=== PATIENT | male | born 1970 | race Caucasian/White ===

== ENCOUNTER → 2018-07-01 14:57 | Outpatient (CLI) | payer BC, SELFPAY ==
--- NOTE | 2018-07-01 15:00 | MR_ITS ---
MR knee RT wo con HISTORY: Medial sided knee pain knee instability and swelling ITS.REASON: RIGHT KNEE PAIN ORDERING PHYSICIAN: Santi Pedraza PATIENT AGE: 47 years Comparison: 06/20/2018 TECHNIQUE: Standard multiplanar multiecho sequences are performed without contrast. FINDINGS: THE REPORT IS DELAYED WAITING ON OUTSIDE FILMS FOR COMPARISON WHICH ARE MADE AVAILABLE TO ME FOR REVIEW ON 07-12-18 The anterior cruciate ligament has an unremarkable appearance. The posterior cruciate ligament appears torn with discontinuity of the ligament fibers. Heterogeneous increased T2 signal is present in this area within the popliteal fossa consistent with underlying edema and/or blood. The collateral ligaments appear intact. Patellar tendon and quadriceps tendon have an unremarkable appearance. There is a moderate sized suprapatellar effusion. No obvious meniscal tear. There is grade 2 signal intensity in the posterior horn of the medial meniscus. This however does not extend to the articular surface or free edge on more than one image and does not meet the strict MRI criteria for meniscal tear.. There are 3 oval areas of decreased T1 and T2 signal within the posterior aspect of the knee joint the largest measuring 12 x 7 mm consistent with loose bodies. There are mild osteoarthritic changes of the knee involving the medial compartment and patellofemoral joint. There is mild amount of bone marrow edema involving the subarticular region of the medial femoral condyle and the medial tibial plateau. There is heterogeneous increased T2 signal within the popliteal fossa. The patellar cartilage is well preserved. Small areas of increased T2 signal are present in the intercondylar notch on the medial side and in the posterior aspect of the medial femoral condyle. IMPRESSION: 1. Tear of the posterior cruciate ligament with heterogeneous signal intensity within the popliteal fossa consistent with underlying edema and/or blood. 2. Mild osteoarthritic changes of the medial compartment and patellofemoral joint with moderate-sized suprapatellar effusion.. There is mild amount of edema involving the medial femoral condyle and medial tibial plateau. No definite meniscal tear 3. Loose bodies in the popliteal fossa.
== END ==
PROVIDERS: Family Provider Family Medicine; PCP Family Medicine; Visit Provider Family Medicine
DX: M25.561 Pain in right knee (principal)
CPT/HCPCS: 73721

== ENCOUNTER 2019-07-17 14:01 | Outpatient (RCR) | payer BC, SELFPAY | END 2019-07-17 14:05 | disposition home or self-care (01) | LOC: PT 14:01 | PROVIDERS: Visit Provider Internal Medicine Interventional Cardiology | DX: I25.810 Atherosclerosis of coronary artery bypass graft(s) without angina pectoris (principal) ==

== ENCOUNTER 2020-02-07 14:09 | Emergency (ER) | payer BC, SELFPAY ==
[2020-02-07 14:10] VITALS: BP 140/80; PULSE 73; RESP 18; TEMP 36.6; O2SAT 99; BMI 35.3
--- NOTE | 2020-02-07 14:34 | XR_ITS ---
PROCEDURE: XR HAND RT MIN 3V CLINICAL INDICATION: INJURED RT INDEX FINGER Pain following injury COMPARISON: No exams were available for comparison FINDINGS: No fracture or dislocation. Laceration is noted at the distal aspect of the index finger dorsally and medially. No radiopaque foreign body The joint spaces are well-preserved. No significant degenerative/arthritic changes. No erosive changes evident. Other findings:None. IMPRESSION: No obvious fracture, soft tissue laceration Dictated by: Bryan Keating MD 02/07/2020 16:12 Electronically signed by Bryan Keating MD in [place] 02/07/2020 16:12
--- NOTE | 2020-02-07 16:34 | HMH.EDUTC ---
[facility] Disposition Clinical Impression: Finger laceration Qualifiers: Encounter type: initial encounter Finger: index finger Damage to nail status: without damage Foreign body presence: unspecified Laterality: right Qualified Code(s): S61.210A - Laceration without foreign body of right index finger without damage to nail, initial encounter Disposition: Home, Self-Care Condition on Discharge: Good Instructions: How to Care for a Laceration After Repair, DI for Laceration Repair, DI for Laceration Repair -- Simple, DI for Laceration Repair -- Finger, Amoxicillin and Clavulanic Acid Additional Instructions: Suture instructions: You have required stitches today. Please read the following instructions so you know how to care for them: 1. Keep wound area dry for the first 24 hours. 2 May clean gently with mild soap and water, after 48 hours to prevent crusting over suture knots. 3. You may shower if your provider gives permission but do not take a bath until the skin is healed.. 4. Never leave a wet dressing or Band-Aid on your stitches as this allows bacteria to reach the area and may cause infection. Band-aids can cause the wound to sweat and not recommended to wear for long periods of time Watch for signs of infection: Increasing redness, tenderness or warmth around the suture site Unusual swelling around the site Appearance of pus around each suture or any red streaks Fever If you develop any of the above signs or symptoms of infection, Follow up with Family Physician immediately 5. Suture removal in __10-12__days 6. Return to [facility] or follow up with family doctor for removal. This can be done by any medical provider during regular hours on Sunday through Sunday, by appointment. Prescriptions: Amoxicillin/Potassium Clav [Augmentin 500mg tab] 1 tab PO BID 7 Days #14 tab Transmission Status: Pending to [email or web address] #[id number] Referrals: Santi Pedraza [Primary Care Provider] - As needed Time of Disposition: 16:36 Medical Decision Making - Manny Inquiry Pt receiving controlled substance: No Manny was queried for this patient: No Vital Signs: 02/07/20 14:10 Temperature 98 F Temperature Source Oral Pulse Rate [Radial] 73 Respiratory Rate 18 Blood Pressure [Right Arm] 140/80 Blood Pressure Mean [Right Arm] 100 Blood Pressure Source [Right Arm] Automatic Cuff Blood Pressure Position [Right Arm] Sitting 02 Sat by Pulse Oximetry 99 Oxygen Delivery Method Room Air Orders (Tests/Meds): ED MEDICATIONS Discontinued Medications Generic Name Dose Route Start Last Admin Trade Name Keeley PRN Reason Stop Dose Admin Tetanus/Reduced Diphtheria/Acell Pertussis 0.5 ml 02/07/20 15:02 02/07/20 15:07 Adacel Tdap 0.5ml Syringe IM 02/07/20 15:03 0.5 ml .ONCE ONE Administration - Radiology Data #1 Image(s): Finger(s)/Thumb Image Reviewed: Yes I reviewed the patient's radiology image Preliminary Findings: No Fracture Seen Medical Decision Narrative: Tetatnus shot given in [facility] and patient prescribed Augmentin 500mg bid x 7 days due to laceration caused by dirty dozer tract [facility] HPI - General Stated complaint: AO laceration to R index finger Time Seen by Provider: 02/07/20 15:30 Mode of Arrival: Ambulatory Source of Information: Patient Limitations: No Limitations Description of Symptoms (Recalled from Triage Doc. by RN): Smashed index finger on right hand HEENT Symptoms (Recalled from RN notes): No Resp Symptoms (Recalled from RN notes): No Skin Symptoms (Recalled from RN notes): Yes MS Symptoms (Recalled from RN notes): No Functional Status (Recalled from RN notes): wnl - History of Present Illness Provider Complaint: Patient states that he was working on a dozer tract when it slipped and pinched his right index finger State that he noticed he had cut the tip of his right index finger just above the finger nail State that he immediately applied pressure and cleaned the wound well with soap
[2020-02-07 16:42] VITALS: BP 140/80; PULSE 73; RESP 18; TEMP 36.6; O2SAT 99
== END 2020-02-07 16:47 | disposition home or self-care (01) ==
PROVIDERS: Emergency Provider Nurse Practitioner; PCP Family Medicine
DX: S61.210A Laceration without foreign body of right index finger without damage to nail, initial encounter (principal); W26.8XXA Contact with other sharp object(s), not elsewhere classified, initial encounter; Y92.018 Other place in single-family (private) house as the place of occurrence of the external cause; Z23 Encounter for immunization; E11.9 Type 2 diabetes mellitus without complications; Z79.84 Long term (current) use of oral hypoglycemic drugs; Z79.899 Other long term (current) drug therapy
CPT/HCPCS: 12001; 73130; 90471; 90715; 99202

== ENCOUNTER → 2022-02-14 16:59 | Outpatient (CLI) | payer BC, SELFPAY ==
--- NOTE | 2022-02-14 | XR_ITS ---
PROCEDURE INFORMATION: Exam: XR Cervical Spine Exam date and time: 02/14/2022 5:09 PM Age: 51 years old Clinical indication: Neck pain; Prior surgery; Surgery date: 6+ months TECHNIQUE: Imaging protocol: XR of the cervical spine. Views: 4 or 5 views. COMPARISON: [facility] MRI-C-SPINE W/WO 01/30/2017 9:26 AM FINDINGS: Bones/joints: Anterior spinal fusion at C5-6. Findings demonstrated on the 2017 MRI cervical spine exam. Vertebral bodies are satisfactorily aligned. Mild-moderate bilateral neural foraminal stenosis. No evidence of acute osseous injury. Soft tissues: Unremarkable. IMPRESSION: 1. No evidence of acute osseous injury. 2. Anterior spinal fusion at C5-6. Mild-moderate bilateral neural foraminal stenosis.
== END ==
PROVIDERS: PCP Family Medicine; Visit Provider Family Medicine
DX: M54.2 Cervicalgia (principal)
CPT/HCPCS: 72050

== ENCOUNTER 2024-06-15 13:07 | Emergency (ER) | payer BC, SELFPAY ==
--- NOTE | 2024-06-15 13:00 | ECG_ITS ---
APPROVED REPORT Exam: Resting ECG HR:81 bpm ECG Measurements Heart Rate 81 AXES NM 185 P 54 QRSd 168 QRS 105 QT 437 T 65 QTc 474 Conclusion SINUS RHYTHM INDETERMINATE AXIS INTRAVENTRICULAR CONDUCTION DELAY [130+ ms QRS DURATION] ABNORMAL ECG Electronically signed by : ELANA IGNACIO, 06/15/2024 16:29:05
[2024-06-15 13:07] VITALS: BP 163/110; PULSE 68; RESP 18; TEMP 36.7; O2SAT 97; BMI 35.1
[2024-06-15 13:11] VITALS: BMI 35.1
--- NOTE | 2024-06-15 13:11 | XR_ITS ---
PROCEDURE INFORMATION: Exam: XR Chest Exam date and time: 06/15/2024 1:06 PM Age: 53 years old Clinical indication: Pain; Chest pressure; Additional info: Chest pain TECHNIQUE: Imaging protocol: Radiologic exam of the chest. Views: 2 views. COMPARISON: CR XR CERVICAL SPINE 5V 02/14/2022 5:09 PM FINDINGS: Lungs: Bibasilar atelectasis. No consolidation. Pleural spaces: Unremarkable. No pleural effusion. No pneumothorax. Heart/Mediastinum: Aortic atherosclerosis. No cardiomegaly. Post cardiac surgery changes. Post sternotomy changes. Bones/joints: No acute fracture. IMPRESSION: No acute findings.
[2024-06-15 13:23] LABS: Basophils # 0.1 K/mm3 (0-0.2); Basophils % 0.7 % (0.1-2.0); Eosinophils # 0.1 K/mm3 (0.0-0.4); Eosinophils % 1.6 % (0.1-12.0); Hematocrit 38.9 % (42.0-52.0); Hemoglobin 12.5 g/dL (14.1-18.0); Lymphocytes # 2.7 K/mm3 (0.7-4.5); Lymphocytes % 35.6 % (10-50); Mean Corpuscular HGB Conc 32.3 g/dL (31.8-35.4); Mean Corpuscular Hemoglobin 22.7 pg (27.0-31.2); Mean Corpuscular Volume 70.3 fl (80-94); Mean Platelet Volume 8.6 fl (7.4-10.4); Monocytes # 0.5 K/mm3 (0.1-1.0); Monocytes % 6.5 % (1.7-9.3); Neutrophils # 4.3 K/mm3 (1.8-7.8); Neutrophils % 55.7 % (37.0-80.0); Platelet Count 154 K/mm3 (142-424); Red Blood Count 5.53 M/mm3 (4.60-6.20); Red Cell Distribution Width 16.7 % (11.5-17.5); White Blood Count 7.7 K/mm3 (4.8-10.8)
[2024-06-15 13:25] LABS: Albumin Level 4.8 g/dl (3.5-5.0); Chloride 106 mmol/L (98-107); Potassium 3.4 mmoL/L (3.5-5.1); Sodium 141 mmol/L (136-145)
[2024-06-15 13:28] LABS: Alanine Aminotransferase 49 U/L (12-78); Albumin/Globulin Ratio 1.7 (1.1-1.8); Alkaline Phosphatase 31 U/L (38-126); Anion Gap 14.4 mEq/L (5-15); Aspartate Amino Transferase 37 U/L (17-59); Bilirubin,Total 0.7 mg/dl (0.2-1.3); Blood Urea Nitrogen 15 mg/dl (9-20); Calcium 9.6 mg/dl (8.4-10.2); Carbon Dioxide 24 mmol/L (22.0-30.0); Creatinine Clearance Estimated 208 mL/min (50-200); Estimated Glomerular Filt Rate 118 ml/min (>60); GFR (African American) 143 ML/MIN (>60); Globulin 2.9 g/dL (1.3-3.2); Glucose 136 mg/dl (74-100); Total Protein,Serum 7.7 g/dl (6.3-8.2)
[2024-06-15 13:30] VITALS: BP 154/94; PULSE 76; RESP 15; O2SAT 94
[2024-06-15 13:42] LABS: Troponin I < 0.01 ng/ml (0.00-0.034)
--- NOTE | 2024-06-15 13:42 | CT_ITS ---
PROCEDURE INFORMATION: Exam: CTA Chest With Contrast Exam date and time: 06/15/2024 2:29 PM Age: 53 years old Clinical indication: Shortness of breath and other: Cp; Additional info: Chest pain, SOA TECHNIQUE: Imaging protocol: Computed tomographic angiography of the chest with contrast. Exam focused on the arteries. 3D rendering (Not supervised by radiologist): MIP and/or 3D reconstructed images were created by the technologist. Radiation optimization: All CT scans at this facility use at least one of these dose optimization techniques: automated exposure control; mA and/or kV adjustment per patient size (includes targeted exams where dose is matched to clinical indication); or iterative reconstruction. Contrast material: ISOVUE 370; Contrast volume: 70 ml; Contrast route: INTRAVENOUS (IV); COMPARISON: CR XR CHEST 2V 06/15/2024 1:06 PM FINDINGS: Pulmonary arteries: Normal. No pulmonary emboli. Aorta: Unremarkable. No aortic aneurysm. No aortic dissection. Lungs: Tree-in-bud nodularity in right middle lobe, concerning for pneumonia. Tiny punctate calcified granuloma in the left upper lobe. Pleural spaces: Unremarkable. No pneumothorax. No pleural effusion. Heart: Moderate cardiomegaly. Coronary artery atherosclerosis. Post cardiac surgery changes. Sternotomy wires appear intact. Lymph nodes: Unremarkable. No enlarged lymph nodes. Gallbladder and biliary ducts: Post cholecystectomy. Bones/joints: No acute fracture. No suspicious lytic or blastic bony lesion. Soft tissues: Gynecomastia. New line micronodular appearance of the liver, concerning for cirrhosis. IMPRESSION: Tree-in-bud nodularity in right middle lobe, concerning for pneumonia.
--- NOTE | 2024-06-15 13:52 | PC.NURSE ---
DR IGNACIO AT BEDSIDE
[2024-06-15 14:00] VITALS: BP 168/98; PULSE 69; RESP 13; O2SAT 94
--- NOTE | 2024-06-15 14:02 | HMH.EDCP ---
Discharge Plan Disposition Patient Disposition: Home, Self-Care Condition: Good Prescriptions Prescriptions: New doxycycline hyclate 100 mg tablet 100 mg PO BID 10 Days Qty: 20 0RF prednisone 20 mg tablet 40 mg PO BID 5 Days Qty: 20 0RF No Action oseltamivir [Tamiflu] 75 mg capsule 75 mg PO BID 5 Days Qty: 10 0RF promethazine 12.5 mg tablet 12.5 mg PO TID Qty: 20 0RF dextromethorphan-guaifenesin [Mucinex DM] 60-1,200 mg tablet extended release 12 hr 1 tab PO Q12H Qty: 20 0RF albuterol sulfate 90 mcg/actuation HFA aerosol inhaler 2 inh INHALATION Q6HP PRN (Reason: Shortness Of Breath Or Wheezing) Qty: 1 0RF hydrocodone-acetaminophen 1 EACH tablet 1 tab PO QID PRN (Reason: PAIN) aspirin 81 MG tablet,delayed release (DR/EC) 81 mg PO DAILY meloxicam 7.5 MG tablet 7.5 mg PO DAILY amlodipine 10 MG tablet 10 mg PO DAILY esomeprazole magnesium 40 MG capsule,delayed release(DR/EC) 40 mg PO DAILY metoprolol succinate 25 MG tablet extended release 24 hr 25 mg PO DAILY ezetimibe 10 MG tablet 10 mg PO DAILY rosuvastatin 10 MG tablet 10 mg PO DAILY bupropion HBr 174 MG tablet extended release 24 hr 174 mg PO DAILY empagliflozin 10 MG tablet 10 mg PO DAILY rivaroxaban 2.5 MG tablet 2.5 mg PO DAILY promethazine-DM 473 ML syrup 5 ml PO Q4HP PRN (Reason: Cough) Qty: 180 0RF baloxavir marboxil 40 MG tablet 80 mg PO ONCE Qty: 2 0RF amoxicillin-pot clavulanate 1 EACH tablet 1 tab PO BID 7 Days Qty: 14 0RF Referrals Follow up/Referrals: Santi Pedraza [Primary Care Provider] - See instructions Activity Restrictions/Add. Instructions Additional Instructions/Restrictions: You were evaluated in the emergency department today. 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 You were given your first dose of doxycycline today. Return to the emergency department right away for new or worsening symptoms peer Clinical Impressions Clinical Impression: Pneumonia, Chest pain Stand Alone Forms Stand Alone Forms: Work/School Release Instructions Patient Instructions: Pneumonia-Adult, DI for Atypical Chest Pain Print Language Print Language: Amharic Discharge ED Provider: Samantha Rajan HPI General Chief Complaint: Chest Pain Stated Complaint: CHEST PAIN Time Seen by Provider: 06/15/24 13:27 Mode of Arrival: Ambulatory Source of Information: Patient Limitations: No Limitations Description of Symptoms (Recalled from ER Triage Doc. by RN): PT REPORTS LEFT SIDED CHEST PAIN AND PAIN UNDER LEFT SHOULDER PAIN, ONGOING FOR ABOUT 2 WEEKS. REPORTS INCREASING SHORTNESS OF BREATH AND FATIGUE WITH EXERTION. REPORTS TIGHTENING IN NECK History of Present Illness HPI narrative: This patient is a 53-year-old male with a history of CAD status post CABG, chronic anticoagulation with Xarelto, hypertension, hyperlipidemia presenting to the emergency department for evaluation with concern for chest pains. Patient reports that he has had left-sided chest pain that goes up into his jaw and left upper extremity/left shoulder for about 2 weeks now but has been progressively worsening. He is also had progressively worsening dyspnea on exertion stating that he can only walk very short distances now without extreme shortness of breath. He notes this feels similar to the past times that he has had to have stents and CABG. He has been concerned at this time his left shoulder blade pain. Related Data Home Medications ?Medication ?Instructions ?Recorded ?Confirmed amlodipine 10 mg tablet 10 mg PO DAILY BP 11/17/19 11/17/19 aspirin 81 mg tablet,delayed 81 mg PO DAILY THINNER 11/17/19 11/17/19 release bupropion HBr 174 mg 174 mg PO DAILY MOOD 11/17/19 11/17/19 tablet,extended release 24 hr empagliflozin 10 mg tablet 10 mg PO DAILY Diabetes 11/17/19 11/17/19 esomeprazole magnesium 40 mg 40 mg PO DAILY GERD 11/17/19 11/17/19 capsule,delayed release ezetimibe 10 mg tablet 10 mg PO DAILY CHOELSEROL 11/17/19 11/17/19 hydrocodone 10 mg-acetaminophen 1 tab PO QID PRN PAIN 11/17/19 11/17/19 325 mg tablet meloxicam 7.5 mg tablet 7.5 mg PO DAILY Arthritis 11/17/19 11/17/19 metoprolol succinate 25 mg 25 mg PO DAILY BP 11/17/19 11/17/19 tablet,extended release 24 hr rivaroxaban 2.5 mg tablet 2.5 mg PO DAILY THINNER 11/17/19 11/17/19 rosuvastatin 10 mg tablet 10 mg PO DAILY Cholesterol 11/17/19 11/17/19 Previous Rx's ?Medication ?Instructions ?Recorded baloxavir marboxil 40 mg tablet 80 mg (2 x 40 mg) PO ONCE #2 tabs 11/17/19 dextromethorphan-guaifenesin ER 60 1 tab PO Q12H #20 tabs 11/17/19 mg-1,200 mg tab,extend release,12hr (Mucinex DM) oseltamivir 75 mg capsule (Tamiflu) 75 mg PO BID 5 days #10 caps 11/17/19 promethazine 12.5 mg tablet 12.5 mg PO TID #20 tabs 11/17/19 promethazine-DM 6.25 mg-15 mg/5 mL 5 ml PO Q4HP PRN Cough ##180 11/17/19 oral syrup albuterol sulfate 90 mcg/actuation 2 inh inhalation Q6HP PRN 12/05/19 aerosol inhaler Shortness Of Breath Or Wheezing #1 inh amoxicillin 500 mg-potassium 1 tab PO BID 7 days #14 tabs 02/07/20 clavulanate 125 mg tablet doxycycline hyclate 100 mg tablet 100 mg PO BID 10 days #20 tabs 06/15/24 prednisone 20 mg tablet 40 mg (2 x 20 mg) PO BID 5 days 06/15/24 #20 tabs Allergies Allergy/AdvReac Type Severity Reaction Status Date / Time No Known Allergies Allergy Verified 11/17/19 17:30 [facility] Disclaimer: The information contained in this section may have been updated after the patient was seen, as this information can be updated by other users. Social History Smoking Status: Current some day smoker alcohol intake: never current occupational status: other Travel in the last 8 weeks: None housing: house caffeine: Yes ROS Obtained: Yes All systems reviewed & no additional complaints except as documented Physical Exam General General appearance: alert, in no apparent distress and obese Head Head exam: atraumatic and normocephalic Eye Eye exam: Present normal appearance, PERRL and EOMI ENT ENT exam: Present normal exam, normal oropharynx, mucous membranes moist and normal external ear exam Neck Neck exam: Present normal inspection, full ROM and trachea midline; Absent tenderness Chest Chest inspection: Present normal inspection and symmetric chest wall rise; Absent tenderness Respiratory Respiratory exam: Present normal lung sounds bilaterally; Absent respiratory distress, wheezes, stridor or accessory muscle use Cardiovascular Cardiovascular exam: Present regular rate and normal rhythm Abdominal Exam Abdominal exam: Present soft; Absent distention, tenderness or guarding Extremities Exam Extremities exam: Present normal inspection, full ROM and normal capillary refill; Absent tenderness or edema Back Exam Back exam: Present normal inspection and full ROM; Absent tenderness Neurological Exam Neurological exam: Present alert, oriented X3, CN II-XII intact and normal gait; Absent motor sensory deficit Psychiatric Psychiatric exam: Present normal affect and normal mood Skin Skin exam: Present warm and dry HEART Score HEART Score HEART Score assessment performed?: Yes History (anamnesis): Slightly suspicious ECG: Normal Age: 45-65 years Risk factors: Atherosclerosis history Troponin: </= normal limit HEART Score: 3 Critical Care Critical Care Time Critical Care Time: No Medical Decision Making Medical Records Medical records reviewed: Yes I reviewed the patient's medical records. Manny Inquiry Pt receiving controlled substance: No Vital Signs Vital Signs: 06/15/24 13:07 06/15/24 13:30 06/15/24 14:00 Temperature 98.0 F Temperature Source Oral Pulse Rate 76 69 Pulse Rate [Apical] 68 Respiratory Rate 18 15 13 Blood Pressure 154/94 H 168/98 H Blood Pressure [Right Arm] 163/110 H Blood Pressure Mean 114 108 Blood Pressure Mean [Right Arm] 127 Blood Pressure Source Blood Pressure Source [Right Arm] Automatic Cuff Blood Pressure Position Blood Pressure Position [Right Arm] Sitting 02 Sat by Pulse Oximetry 97 94 L 94 L Oxygen Delivery Method Room Air Room Air Room Air 06/15/24 15:30 06/15/24 15:55 Temperature 98.0 F Temperature Source Oral Pulse Rate 68 68 Pulse Rate [Apical] Respiratory Rate 13 18 Blood Pressure 166/103 H 166/103 H Blood Pressure [Right Arm] Blood Pressure Mean 124 Blood Pressure Mean [Right Arm] Blood Pressure Source Automatic Cuff Blood Pressure Source [Right Arm] Blood Pressure Position Sitting Blood Pressure Position [Right Arm] 02 Sat by Pulse Oximetry 95 Oxygen Delivery Method Room Air Room Air Lab Data Labs: Lab Results 06/15/24 13:05: WBC 7.7, RBC 5.53, Hgb 12.5 L, Hct 38.9 L, MCV 70.3 L, MCH 22.7 L, MCHC 32.3, RDW 16.7, Plt Count 154, MPV 8.6, Neut % (Auto) 55.7, Lymph % (Auto) 35.6, Martin % (Auto) 6.5, Eos % (Auto) 1.6, Baso % (Auto) 0.7, Neut # (Auto) 4.3, Lymph # (Auto) 2.7, Martin # (Auto) 0.5, Eos # (Auto) 0.1, Baso # (Auto) 0.1, Sodium 141, Potassium 3.4 L, Chloride 106, Carbon Dioxide 24, Anion Gap 14.4, BUN 15, Creatinine 0.70, Estimated Creat Clear 208, Estimated GFR 118, Est GFR ( Amer) 143, Glucose 136 H, Calcium 9.6, Total Bilirubin 0.7, AST 37, ALT 49, Alkaline Phosphatase 31 L, Troponin I < 0.01, NT-Pro-B Natriuret Pep 40.5, Total Protein 7.7, Albumin 4.8, Globulin 2.9, Albumin/Globulin Ratio 1.7, HIV 1&2 Antibody Rapid Nonreactive 06/15/24 13:05 06/15/24 13:05 Response Orders (Tests/Meds): ED MEDICATIONS Discontinued Medications Generic Name Dose Route Start Last Admin Trade Name Freq PRN Reason Stop Dose Admin Doxycycline Hyclate 100 mg 06/15/24 15:47 06/15/24 15:58 Doxycycline Hycl 100 Mg Tablet PO 06/15/24 15:48 100 mg ONCE ONE Administration Iopamidol 70 ml 06/15/24 14:35 06/15/24 14:35 Iopamidol-370 (76%);100ml Bottle IV 06/15/24 14:36 70 ml ONCE ONE Administration Sodium Chloride 10 ml 06/15/24 13:11 Sodium Chloride 0.9% 10ml Flush Syringe IV 07/15/24 13:10 NEEDED PRN Maintain IV Site Sodium Chloride 10 ml 06/15/24 14:35 06/15/24 14:35 Sodium Chloride 0.9% 10ml Syr (Rad Only) IV 06/15/24 14:36 10 ml ONCE ONE Administration Sodium Chloride 50 ml 06/15/24 14:35 06/15/24 14:35 0.9 % Sodium Chloride 50 Ml Vial IV 06/15/24 14:36 50 ml ONCE ONE Administration ORDERS Category Date Time Status CTA Chest [CT angio chest PE protocol] Stat Cat Scan 06/15/24 13:42 Completed XR chest 2V Stat Exams 06/15/24 13:11 Completed BNP [NT Pro Brain Natriuretic Pep.] Stat Lab 06/15/24 13:05 Completed Complete Blood Count Auto Diff Stat Lab 06/15/24 13:05 Completed Comprehensive Metabolic Panel Stat Lab 06/15/24 13:05 Completed HIV (1&2) Antibody Rapid Stat Lab 06/15/24 13:05 Completed Hep C Ab with Reflex to RNA Stat Lab 06/15/24 13:05 Received Troponin I Stat Lab 06/15/24 13:05 Completed ECG Data Tracing #1: Attestation: I reviewed this ECG and interpreted as documented below: ECG Narrative: Normal sinus rhythm with a ventricular rate of 81 bpm. Interventricular conduction delay. No acute ST changes concerning for ischemia. ECG initial impression date: 06/15/24 ECG initial impression time: 13:05 MDM Narrative Medical Decision Narrative: In summary, this patient is a 53-year-old male presenting to the Emergency Department for evaluation of worsening chest pains and dyspnea on exertion for the last 2-week. Differential diagnoses considered include but are not limited to ACS, stable angina, unstable angina, PE, pneumonia, pleurisy. Ruling out the most morbid conditions drove assessment. It should be noted patient's history includes CAD status post CABG which may not be at goal therapy. This complicates all aspects of care by increasing patient's risk for morbidity. On exam, the patient is lying in bed in no acute distress with reassuring vital signs on cardiac telemetry. EKG does not show any acute ischemic changes at this time. Workup included CBC, CMP, troponin, CT PE protocol. I independently interpreted CT prior to the radiologist read and noted possible pneumonia. Please see their read for final interpretation. Labs were obtained that demonstrated negative troponin and no other acutely concerning abnormality. On reassessment, patient is lying in bed in no acute distress with reassuring vital signs on cardiac telemetry. Advised him that CT scan is possibly concerning for pneumonia, and he states that he has had pneumonia in the past and it felt very similar to this. He is having cough and chest congestion. Given this, will treat as pneumonia. He was given oral doxycycline. Given his history of COPD, will also administer short course of steroids. I considered keeping the patient here to obtain second troponin, but symptoms have been there for about 2 weeks now without significant change, so I feel that discharge follow-up is appropriate he was given instructions for close outpatient follow-up and strict return precautions.
--- NOTE | 2024-06-15 14:17 | PC.NURSE ---
ROUNDED ON PT, UPDATED ON POC. NO NEEDS AT THIS TIME
--- NOTE | 2024-06-15 14:27 | PC.NURSE ---
PT TO CT
--- NOTE | 2024-06-15 14:31 | PC.NURSE ---
PT RETURNED FROM CT
[2024-06-15] MEDS: 0.9 % SODIUM CHLORIDE 50 ML VIAL IV (14:35)
[2024-06-15] MEDS: IOPAMIDOL-370 (76%);100ML BOTTLE 70 ML IV (14:35)
[2024-06-15] MEDS: SODIUM CHLORIDE 0.9% 10ML SYR (RAD ONLY) 10 ML IV (14:35)
[2024-06-15 14:36] LABS: HIV (1&2) Antibody Rapid NONREACTIVE (NONREACTIVE)
[2024-06-15 14:50] LABS: NT Pro Brain Natriuretic Pep. 40.5 pg/mL (0-125)
--- NOTE | 2024-06-15 14:59 | PC.NURSE ---
PT ASSISTED TO BR
[2024-06-15 15:30] VITALS: BP 166/103; PULSE 68; RESP 13; O2SAT 95
--- NOTE | 2024-06-15 15:43 | PC.NURSE ---
DR IGNACIO AT BEDSIDE TO UPDATE PT
[2024-06-15 15:55] VITALS: BP 166/103; PULSE 68; RESP 18; TEMP 36.7; O2SAT 96
[2024-06-15] MEDS: DOXYCYCLINE HYCL 100 MG TABLET PO (15:58)
[2024-06-17 05:15] LABS: HCV Ab Non Reactive (Non Reactive)
== END 2024-06-15 16:10 | disposition home or self-care (01) ==
PROVIDERS: Emergency Provider Emergency Medicine; PCP Family Medicine
DX: J18.9 Pneumonia, unspecified organism (principal); R07.9 Chest pain, unspecified; R06.02 Shortness of breath; R53.83 Other fatigue; R06.00 Dyspnea, unspecified
CPT/HCPCS: 71046; 71275; 80053; 83880; 84484; 85025; 86803; 87389; 93005; 99285; Q9967